=== PATIENT | male | born 1960 | race Caucasian/White ===

== ENCOUNTER 2021-04-15 20:06 | Emergency (ER) | payer MEDICARE, OTHER ==
[2021-04-15 20:33] LABS: HEMOGLOBIN 15.4 gm/dl (14.0-17.5); RED BLOOD COUNT 4.77 M/UL (4.20-5.50); WHITE BLOOD COUNT 6.9 K/UL (4.5-11.0)
[2021-04-15 20:48] LABS: BUN/CREATININE RATIO 14 (0-10)
[2021-04-15] MEDS ORDERED: [UNRECOGNIZED DRUG - REMARK] (22:36)
== END 2021-04-15 22:46 | disposition home or self-care (01) ==
LOC: ER1 20:06
PROVIDERS: Family Medicine
DX: M54.9 Dorsalgia, unspecified (principal); E83.51 Hypocalcemia; R94.5 Abnormal results of liver function studies
CPT/HCPCS: 72125; 72128; 72131; 80053; 85025; 99284; G0480